=== PATIENT | male | born 1960 | race Caucasian/White ===

== ENCOUNTER 2021-04-16 18:59 | Inpatient (IN) | payer MEDICARE, MEDICAID ==
[~2021-04-16] VITALS: Ht 180.3 cm; Wt 90.7 kg
[2021-04-16 20:11] LABS: HEMOGLOBIN 15.3 gm/dl (14.0-17.5); RED BLOOD COUNT 5.24 M/UL (4.20-5.50); WHITE BLOOD COUNT 6.9 K/UL (4.5-11.0)
[2021-04-16 20:57] LABS: BUN/CREATININE RATIO 12 (0-10)
[2021-04-17] MEDS ORDERED: SIMVASTATIN20 MG PO (00:47)
[2021-04-17] MEDS ORDERED: TOPROL XL 50 MG50 MG PO (00:48)
[2021-04-17 06:57] LABS: HEMOGLOBIN 15.5 gm/dl (14.0-17.5); RED BLOOD COUNT 5.25 M/UL (4.20-5.50); WHITE BLOOD COUNT 6.3 K/UL (4.5-11.0)
[2021-04-17 07:38] LABS: BUN/CREATININE RATIO 14 (0-10)
[2021-04-18 07:38] LABS: HEMOGLOBIN 13.7 gm/dl (14.0-17.5); RED BLOOD COUNT 4.85 M/UL (4.20-5.50)
[2021-04-18 07:50] LABS: WHITE BLOOD COUNT 3.2 K/UL (4.5-11.0)
[2021-04-18 08:17] LABS: BUN/CREATININE RATIO 17 (0-10)
[2021-04-19 07:01] LABS: HEMOGLOBIN 13.9 gm/dl (14.0-17.5); RED BLOOD COUNT 4.92 M/UL (4.20-5.50)
[2021-04-19 07:03] LABS: WHITE BLOOD COUNT 5.2 K/UL (4.5-11.0)
[2021-04-19 07:45] LABS: BUN/CREATININE RATIO 20 (0-10)
[2021-04-20 05:33] LABS: HEMOGLOBIN 14.1 gm/dl (14.0-17.5); RED BLOOD COUNT 4.87 M/UL (4.20-5.50); WHITE BLOOD COUNT 6.5 K/UL (4.5-11.0)
[2021-04-20 06:32] LABS: BUN/CREATININE RATIO 21 (0-10)
[2021-04-21] MEDS ORDERED: DECADRON6 MG PO (09:47)
== END 2021-04-21 16:03 | disposition home or self-care (01) | DRG 177 ==
LOC: ER1 18:59 → CDU 23:06 → M/S 23:06
PROVIDERS: Emergency Medicine; Internal Medicine; ADMIT Internal Medicine
PROC: 8E0ZXY6 Isolation (ICD-10-PCS; 2021-04-16)
PROC: XW033E5 Introduction of Remdesivir Anti-infective into Peripheral Vein, Percutaneous Approach, New Technology Group 5 (ICD-10-PCS; principal; 2021-04-17)
PROC: 3E0333Z Introduction of Anti-inflammatory into Peripheral Vein, Percutaneous Approach (ICD-10-PCS; 2021-04-17)
PROC: XW033H5 Introduction of Tocilizumab into Peripheral Vein, Percutaneous Approach, New Technology Group 5 (ICD-10-PCS; 2021-04-17)
DX: U07.1 COVID-19 (principal); J96.01 Acute respiratory failure with hypoxia; J12.82 Pneumonia due to coronavirus disease 2019; M62.82 Rhabdomyolysis; J44.0 Chronic obstructive pulmonary disease with (acute) lower respiratory infection; I10 Essential (primary) hypertension; E78.5 Hyperlipidemia, unspecified; I25.10 Atherosclerotic heart disease of native coronary artery without angina pectoris; Z88.1 Allergy status to other antibiotic agents; Z23 Encounter for immunization; Z87.442 Personal history of urinary calculi
CPT/HCPCS: 36415; 71045; 80053; 82550; 82553; 83735; 83880; 84100; 84484; 85025; 85027; 85652; 86140; 87040; 93005; 94640; 94760; 99285; J0696; J1100; J1650; J7030; Q0249; U0002